=== PATIENT | female | born 1960 | race Caucasian/White ===

== ENCOUNTER 2017-12-22 10:51 | Outpatient (CLI) | payer OTHER | END 2017-12-22 10:52 | disposition home or self-care (01) | LOC: DTY/OP 10:51 | PROVIDERS: ATTEND Surgery | DX: E66.01 Morbid (severe) obesity due to excess calories (principal) | CPT/HCPCS: 97802 ==

== ENCOUNTER 2018-01-03 16:33 | Outpatient (CLI) | payer OTHER ==
[2018-01-03 17:41] LABS: #Basophils 0.1 thou/uL (0.0-0.2); #Eosinphils 0.2 thou/uL (0.0-0.7); #Lymphocytes 1.8 thou/uL (1.20-3.40); #Monocytes 0.5 thou/uL (0.11-0.59); #Neutrophils 4.2 thou/uL (1.40-6.50); %Basophils 0.8 % (0.0-1.0); %Eosinophils 2.9 % (0.0-10.0); %Lymphocytes 26.4 % (21.0-51.0); %Monocytes 7.2 % (0.0-10.0); %Neutrophils 62.7 % (42.0-75.0); Hemoglobin 13.2 g/dL (12.0-16.0); Mean Corpuscular HGB CONC 34.4 g/dL (32.0-36.0); Mean Corpuscular Hemoglobin 30.1 pg (27.0-31.0); Mean Corpuscular Volume 87.5 fL (78.0-98.0); Platelet Count 268 thou/uL (130-400); RBC Distribution Width 11.7 % (11.5-14.5); Red Blood Cell (RBC) Count 4.39 mill/uL (4.20-5.40); White Blood Cell (WBC) Count 6.7 thou/uL (4.8-10.8)
[2018-01-03 17:54] LABS: Hemoglobin A1c 5.3 % (4.0-6.0)
[2018-01-03 17:56] LABS: ALT (SGPT) 29 U/L (8-55); AST (SGOT) 21 U/L (5-34); Albumin 4.3 g/dL (3.5-5.0); Alkaline Phosphatase 82 U/L (40-150); Anion Gap 13 mmol/L (10-20); BUN (Urea Nitrogen) 21 mg/dL (9.8-20.1); Bilirubin, Direct 0.1 mg/dL (0.1-0.3); Bilirubin, Total 0.4 mg/dL (0.2-1.2); Calc. Creatinine Clearance 0 mL/min (70-130); Calcium 9.6 mg/dL (7.8-10.44); Carbon Dioxide 24 mmol/L (22-29); Chloride 105 mmol/L (98-107); Estimated GFR-MDRD 78; Glucose 84 mg/dL (70-105); Potassium 4.1 mmol/L (3.5-5.1); Protein, Total 7.3 g/dL (6.0-8.3); Sodium 138 mmol/L (136-145)
--- NOTE | 2018-01-03 18:26 | RAD ---
TWO VIEW CHEST: 01/03/18 COMPARISON: None available. INDICATION: Preoperative assessment. FINDINGS: The cardiac silhouette is at upper limits of normal in size. There is no lobar consolidation, effusio n or discrete pneumothorax. No acute osseous pathology visualized. IMPRESSION: No focal consolidation. POS: FLAKO
== END 2018-01-03 16:34 | disposition home or self-care (01) ==
LOC: LABBT 16:33
PROVIDERS: ATTEND Surgery
DX: Z01.818 Encounter for other preprocedural examination (principal); E66.01 Morbid (severe) obesity due to excess calories
CPT/HCPCS: 71046; 80053; 80076; 83036; 85025

== ENCOUNTER 2018-01-03 17:15 | Inpatient (IN) | payer OTHER ==
[2018-01-06] MEDS ORDERED: CEFAZOLIN/Water 2 GM/20 ML SYRINGE ONE (09:06)
[2018-01-06] MEDS ORDERED: Heparin 5,000 UNITS/ML VIAL ONE (09:07)
[2018-01-06] MEDS ORDERED: Fentanyl 100 MCG/2 ML VIAL ONE (12:18)
[2018-01-06] MEDS ORDERED: Midazolam HCl 2 mg/2 ml Vial ONE (12:18)
[2018-01-06] MEDS ORDERED: HYDROmorphone 2 MG/ML VIAL ONE ×2 (12:18→14:27)
[2018-01-06] MEDS ORDERED: Promethazine HCl 25 MG/ML VIAL IM PRN ×3 (12:22→14:02)
[2018-01-06] MEDS ORDERED: Meperidine HCl/PF 25 MG/ML VIAL SLOW IVP PRN (12:22)
[2018-01-06] MEDS ORDERED: Ondansetron HCl/PF 4 MG/2 ML Vial IVP PRN ×3 (12:22→14:02)
[2018-01-06] MEDS ORDERED: HYDROmorphone 10 mg/100 ml CADD IVPB PRN (12:22)
[2018-01-06] MEDS ORDERED: diphenhydrAMINE 50 MG/ML VIAL IM PRN (12:22)
[2018-01-06] MEDS ORDERED: Zolpidem Tartrate 5 MG TAB PO PRN (12:22)
[2018-01-06] MEDS ORDERED: Naloxone HCl 0.4 mg/ml Vial IV PRN (12:22)
[2018-01-06] MEDS ORDERED: diphenhydrAMINE 25 MG CAP PO PRN (12:22)
[2018-01-06] MEDS ORDERED: Promethazine HCl 25 MG/ML VIAL SLOW IVP PRN (12:22)
[2018-01-06] MEDS ORDERED: HYDROmorphone 2 MG/ML VIAL SLOW IVP PRN (12:22)
[2018-01-06] MEDS ORDERED: diphenhydrAMINE 50 MG/ML VIAL IVP PRN ×2 (12:22→14:02)
[2018-01-06] MEDS ORDERED: Communication Order-Pharmacy FS SCH (12:30)
[2018-01-06] MEDS ORDERED: Bupivacaine/Epinephrine 0.25% 30 ML VIAL ONE (12:32)
[2018-01-06] MEDS ORDERED: Morphine 4 MG/ML VIAL SLOW IVP PRN (14:02)
[2018-01-06] MEDS ORDERED: hydrALAZINE 20 MG/ML VIAL SLOW IVP PRN (14:02)
[2018-01-06] MEDS ORDERED: Dextrose 50% Abboject 50 ML SYRINGE SLOW IVP PRN (14:02)
[2018-01-06] MEDS ORDERED: Dextrose 5% in Water 1,000 ML IV PRN (14:02)
--- NOTE | 2018-01-06 14:13 | OP ---
DATE OF PROCEDURE: 01/06/2018 PREOPERATIVE DIAGNOSIS: Morbid obesity. SURGEON: Hany Ford M.D. PROCEDURE: Laparoscopic sleeve gastrectomy with esophagogastroscopy. INDICATIONS: This is a 57-year-old female, morbidly obese, who has attempted multiple weight loss p rograms without success. FINDINGS: A 38 [place] bougie used. PROCEDURE IN DETAIL: After informed consent was obtained, the patient was taken to the operating kyung m and given general endotracheal anesthesia. She was placed in the supine position. Her abdomen was prepped and draped in usual fashion. Local anesthesia infiltrated subcutaneously and deep. A 12 mm incision was performed approximately 8 inches above the xiphoid slightly to the left. Veress needle inserted. Drop test performed. Pneumoperitoneum was created to a volume of 2 liters of carbon diox cherri. Utilizing a bladeless 12 mm trocar and 0 degree laparoscope, direct visual entry into the abdom inal cavity was performed. Pneumoperitoneum was then created to a pressure of 15 mmHg. The patient placed in steep reverse Trendelenburg position. Nathansen liver retractor inserted. Left lobe of li lincoln retracted superiorly. Pylorus identified a 12 mm port placed on the right beneath it and two 12s placed left subcostal. The omentum was taken off the greater curvature utilizing EnSeal. Short gas trics divided with the Enseal, left crura defined with the EnSeal. A 38-[place] bougie inserted direc keith into the antrum. The linear 60 mm green load stapler used to divide the antrum to the bougie, go ld load along the bougie, and a series of blues through the angle of His. Intraoperative endoscopy w as performed. The video endoscope inserted under direct vision and advanced into the sleeve. The st aple line inspected. There was no bleeding. Staple line then tested by inflating the new stomach wi th pressurized air and water. There was no air leak. Stomach decompressed. Scope removed. The rem nant stomach removed from the abdomen through the left lateral port site. The fascia closed with 0 V icryl suture and the GraNee needle. Trocars and retractors removed. The skin closed with interrupte d 4-0 Rapide. Dermabond applied. The patient tolerated the procedure well and was transferred to [facility] in good condition. Sponge and needle count verified correct x2.
[2018-01-06] MEDS ORDERED: PROPOFOL 200 MG/20 ML VIAL ONE (14:44)
[2018-01-06] MEDS ORDERED: Ketorolac Tromethamine 30 MG/ML VIAL ONE (14:44)
[2018-01-06] MEDS ORDERED: Dexamethasone 20 MG/5 ML VIAL ONE (14:44)
[2018-01-06] MEDS ORDERED: PHENYLEPHRINE-NS 100 MCG/ML 10 ML SYRINGE ONE (14:44)
[2018-01-06] MEDS ORDERED: Glycopyrrolate 0.2 MG/ML 5 ML SYRINGE ONE (14:44)
[2018-01-06] MEDS ORDERED: Ondansetron HCl/PF 4 MG/2 ML Vial ONE (14:44)
[2018-01-06] MEDS ORDERED: Lidocaine 1% PF 5 ML VIAL ONE (14:44)
[2018-01-06 15:47] VITALS: BMI 34.9
[2018-01-06] MEDS: D5 1/2 NS w/20 mEq KCL 1,000 ML IV SCH (17:46)
[2018-01-06] MEDS: Acetaminophen 1,000 MG in Premix Bag 1 BAG IVPB SCH ×2 (17:47→23:18)
[2018-01-06] MEDS: Ketorolac Tromethamine 30 MG/ML VIAL IVP SCH ×2 (17:47→23:19)
[2018-01-06] MEDS: CEFAZOLIN/Water 2 GM/20 ML SYRINGE SLOW IVP SCH (17:50)
[2018-01-07] MEDS: CEFAZOLIN/Water 2 GM/20 ML SYRINGE SLOW IVP SCH (01:06)
[2018-01-07] MEDS: D5 1/2 NS w/20 mEq KCL 1,000 ML IV SCH ×2 (03:17→08:06)
[2018-01-07 05:35] LABS: #Lymphocytes 0.7 thou/uL (1.20-3.40); #Monocytes 0.7 thou/uL (0.11-0.59); #Neutrophils 9.4 thou/uL (1.40-6.50); %Basophils 0.4 % (0.0-1.0); %Eosinophils 0.2 % (0.0-10.0); %Lymphocytes 6.6 % (21.0-51.0); %Monocytes 6.1 % (0.0-10.0); %Neutrophils 86.7 % (42.0-75.0); Hemoglobin 10.9 g/dL (12.0-16.0); Mean Corpuscular HGB CONC 34.1 g/dL (32.0-36.0); Mean Platelet Volume 8.2 fL (7.4-10.4); Platelet Count 260 thou/uL (130-400); RBC Distribution Width 11.6 % (11.5-14.5); Red Blood Cell (RBC) Count 3.65 mill/uL (4.20-5.40); White Blood Cell (WBC) Count 10.9 thou/uL (4.8-10.8)
[2018-01-07 05:44] LABS: Anion Gap 11 mmol/L (10-20); BUN (Urea Nitrogen) 13 mg/dL (9.8-20.1); Calc. Creatinine Clearance 127 mL/min (70-130); Calcium 8.4 mg/dL (7.8-10.44); Carbon Dioxide 25 mmol/L (22-29); Chloride 103 mmol/L (98-107); Estimated GFR-MDRD 78; Glucose 156 mg/dL (70-105); Potassium 4.5 mmol/L (3.5-5.1); Sodium 134 mmol/L (136-145)
[2018-01-07] MEDS: Acetaminophen 1,000 MG in Premix Bag 1 BAG IVPB SCH (06:26)
[2018-01-07] MEDS: Ketorolac Tromethamine 30 MG/ML VIAL IVP SCH (06:27)
[2018-01-07 08:50] VITALS: BP 123/86; TEMP 98
--- NOTE | 2018-01-07 08:55 | RAD ---
LIMITED UPPER GI WITH 15 ML GASTROGRAFIN: HISTORY: Recent vertical sleeve gastrectomy. FINDINGS: There is prompt passage of contrast from the esophagus into the stomach. No contrast extravasation i s seen. IMPRESSION: Normal exam. POS: TIM
[2018-01-07] MEDS ORDERED: Prevnar 13-Val Conj/PF 0.5 ML SYRINGE IM ONE (09:00)
[2018-01-07] MEDS ORDERED: Pantoprazole 40 MG VIAL IVP SCH (09:00)
[2018-01-07] MEDS ORDERED: Enoxaparin Sodium 40 MG/0.4 ML SYRINGE SC SCH (09:00)
--- NOTE | 2018-01-07 11:35 | DIS ---
DISCHARGE DIAGNOSIS: Morbid obesity. PROCEDURES DURING ADMISSION: Laparoscopic sleeve gastrectomy, intraoperative esophagogastroscopy, po stoperative Gastrografin swallow. HOSPITAL COURSE: The patient was admitted, taken to the operating room where she underwent a sleeve gastrectomy. Postoperatively, she has done well. X-ray was fine. She was started on liquid. She i s tolerating well. She is discharged home on hydrocodone and Zofran to follow up with me in 2 weeks.
[2018-01-07] MEDS ORDERED: Hydrocodone-Acetamin 15 ML UDCUP PO PRN (23:59)
== END 2018-01-07 12:36 | disposition home or self-care (01) | DRG 621 ==
LOC: SURG A 01-06 08:30
PROVIDERS: ADMIT Surgery; ATTEND Surgery
PROC: 0DB64Z3 Excision of Stomach, Percutaneous Endoscopic Approach, Vertical (ICD-10-PCS; principal; 2018-01-06)
DX: E66.01 Morbid (severe) obesity due to excess calories (principal); Z68.35 Body mass index [BMI] 35.0-35.9, adult
CPT/HCPCS: 36415; 74241; 80048; 85025; 88307; 88312; C9113; J0131; J1100; J1170; J1644; J1650; J1885; J2001; J2250; J2405; J2704; J3010

== ENCOUNTER 2018-01-26 11:16 | Outpatient (CLI) | payer OTHER | END 2018-01-26 11:17 | disposition home or self-care (01) | LOC: BICMAMMO 11:16 | PROVIDERS: ATTEND Obstetrics & Gynecology | DX: Z12.31 Encounter for screening mammogram for malignant neoplasm of breast (principal); Z80.3 Family history of malignant neoplasm of breast | CPT/HCPCS: 77063; 77067 ==

== ENCOUNTER 2018-03-28 08:37 | Day surgery (SDC) | payer OTHER ==
[2018-03-25 17:26] VITALS: BMI 30.5
[2018-03-28] MEDS ORDERED: PROPOFOL 20 ML ONE (09:05)
[2018-03-28] MEDS ORDERED: PROPOFOL 200 MG/20 ML VIAL ONE (14:59)
--- NOTE | 2018-03-28 16:52 | EKG ---
Test Reason : POST CARDIOVERSION Blood Pressure : / mmHG Vent. Rate : 051 BPM Atrial Rate : 051 BPM P-R Int : 152 ms QRS Dur : 080 ms QT Int : 472 ms P-R-T Axes : -03 056 030 degrees QTc Int : 435 ms Sinus bradycardia Otherwise normal ECG No previous ECGs available Confirmed by DR. Rosalba MAYEN ([id number]) on 03/28/2018 4:51:46 PM Referred By: CASSI Confirmed By:DR. Rosalba MAYEN
--- NOTE | 2018-05-13 14:41 | OP ---
DATE OF PROCEDURE: 03/28/2018 PREPROCEDURE DIAGNOSIS: Atrial fibrillation. POSTPROCEDURE DIAGNOSIS: Sinus rhythm. PROCEDURE: Successful synchronized cardioversion. NARRATIVE: The patient was then consented for the procedure. Propofol was used for conscious sedation. The patient underwent successful synchronized cardioversion at 150 joules. IMPRESSION: Successful synchronized cardioversion. Job ID: [id number]
== END 2018-03-28 11:08 | disposition home or self-care (01) ==
LOC: CCL 08:37
PROVIDERS: ATTEND Internal Medicine Cardiovascular Disease
PROC: 5A2204Z Restoration of Cardiac Rhythm, Single (ICD-10-PCS; principal; 2018-03-28)
DX: I48.1 Persistent atrial fibrillation (principal); Z79.01 Long term (current) use of anticoagulants; Z79.899 Other long term (current) drug therapy
CPT/HCPCS: 92960; 93005; 93010; J2704

== ENCOUNTER 2018-10-12 07:12 | Observation (INO) | payer OTHER, SELFPAY ==
[2018-10-12 08:34] LABS: #Basophils 0.1 thou/uL (0.0-0.2); #Eosinphils 0.2 thou/uL (0.0-0.7); #Lymphocytes 1.4 thou/uL (1.20-3.40); #Monocytes 0.4 thou/uL (0.11-0.59); #Neutrophils 2.8 thou/uL (1.40-6.50); %Basophils 1.8 % (0.0-1.0); %Eosinophils 3.7 % (0.0-10.0); %Monocytes 8.5 % (0.0-10.0); Hemoglobin 13.9 g/dL (12.0-16.0); Mean Corpuscular HGB CONC 33.7 g/dL (32.0-36.0); Mean Corpuscular Hemoglobin 30.9 pg (27.0-31.0); Mean Corpuscular Volume 91.9 fL (78.0-98.0); Mean Platelet Volume 7.9 fL (7.4-10.4); Platelet Count 263 thou/uL (130-400); RBC Distribution Width 11.3 % (11.5-14.5); Red Blood Cell (RBC) Count 4.51 mill/uL (4.20-5.40); White Blood Cell (WBC) Count 4.9 thou/uL (4.8-10.8)
[2018-10-12 08:39] LABS: PTT 28.2 SEC (22.9-36.1); Prothrombin Time 13.3 SEC (12.0-14.7)
[2018-10-12 08:53] LABS: Anion Gap 11 mmol/L (10-20); BUN (Urea Nitrogen) 9 mg/dL (9.8-20.1); Calc. Creatinine Clearance 107 mL/min (70-130); Calcium 9.4 mg/dL (7.8-10.44); Carbon Dioxide 26 mmol/L (22-29); Chloride 105 mmol/L (98-107); Estimated GFR-MDRD 82; Glucose 92 mg/dL (70-105); Potassium 3.9 mmol/L (3.5-5.1); Sodium 138 mmol/L (136-145)
[2018-10-12] MEDS ORDERED: Heparin 10,000 UNITS/1 ML VIAL ONE ×4 (10:55→13:58)
[2018-10-12] MEDS ORDERED: Scopolamine 1.5 mg/72 hour Patch ONE (10:56)
[2018-10-12] MEDS ORDERED: Fentanyl 100 MCG/2 ML VIAL ONE (11:11)
[2018-10-12] MEDS ORDERED: Phenylephrine HCL 10 MG/ML VIAL ONE (11:31)
[2018-10-12] MEDS ORDERED: Heparin 25,000 units/D5W 500 ML ONE (12:50)
[2018-10-12] MEDS ORDERED: Rocuronium Bromide 50 MG/5 ML VIAL ONE (13:50)
[2018-10-12] MEDS ORDERED: Isoproterenol 0.2 MG/1 ML AMP ONE (13:59)
[2018-10-12] MEDS ORDERED: Protamine Sulfate 50 MG/5 ML VIAL ONE (14:43)
[2018-10-12] MEDS ORDERED: Glycopyrrolate 0.2 MG/ML 5 ML SYRINGE ONE (15:10)
[2018-10-12] MEDS ORDERED: PROPOFOL 200 MG/20 ML VIAL ONE (15:10)
[2018-10-12] MEDS ORDERED: Heparin 30,000 units/30 ml VIAL ONE (15:10)
[2018-10-12] MEDS ORDERED: Rocuronium Bromide 10 MG/ML (10ML VIAL) ONE (15:10)
[2018-10-12] MEDS ORDERED: Lidocaine 1% PF 5 ML VIAL ONE (15:10)
[2018-10-12] MEDS ORDERED: Dexamethasone 20 MG/5 ML VIAL ONE (15:10)
[2018-10-12] MEDS ORDERED: Ondansetron PF 4 MG/2 ML Vial ONE (15:10)
[2018-10-12] MEDS ORDERED: Rivaroxaban 10 MG TAB PO SCH ×2 (17:00→21:00)
[2018-10-12 17:27] VITALS: BMI 27.3
--- NOTE | 2018-10-12 20:42 | OP ---
DATE OF PROCEDURE: 10/12/2018 PRIMARY CARE PHYSICIAN: Josué Mireles MD PROCEDURE PERFORMED: Electrophysiology study and radiofrequency ablation. REASON FOR PROCEDURE: Mrs. Galindo is a 58-year-old woman with history of recurrent persistent atrial fibrillation, prior cardioversions and recurrent despite flecainide. She is here for pulmonary venous isolation procedure. She has otherwise structurally normal heart. LVEF 51%. The patient has been well anticoagulated with Xarelto over a month. DESCRIPTION OF PROCEDURE: The patient received propofol by Anesthesia specialist. After adequate level of sedation achieved, the left and right femoral venous areas were prepped, draped, and anesthetized using subcutaneous lidocaine. In the left side, an 11-Spanish sheath was used to advance the intracardiac echocardiogram probe, which was used to monitor the transeptal puncture to assess any fluid accumulation throughout the procedure. Also on the left side, a Preface sheath was introduced, through which DuoDeca sheath was exchanged there to Decapolar sheath to cannulate the CS. Following that on the right side, two 8-Spanish short sheaths were introduced. The 8-Spanish short sheaths were exchanged to SL1 sheath. Initial right atrial map was obtained using ThermoCool SFST catheter. The second SL1 sheath was also introduced, and a transseptal puncture was performed with this sheath. Heparin was introduced at this point in bolus and drip and that was adjusted to keep ACT over 350 throughout the procedure. The transseptal sheath was used to insert a wire into the left superior pulmonary vein, and the sheath was withdrawn and through this transseptal opening. The ablation catheter was advanced to the left atrium, and later, the second SL1 sheath was also inserted through the same opening. Following that, left atrial map was obtained using the 20-pole Lasso catheter. All 4 pulmonary veins were isolated as well as posterior wall was also isolated using superior and inferior box line. At this point, cardioversion was performed, restoring sinus rhythm, and Isuprel was introduced. Any reconnection was re-ablated. Throughout the procedure, an esophageal temperature monitored with the esophageal probe to avoid excessive heating. A total of 29 ablation lesions delivered, and the total ablation time was 15 minutes and 55 seconds at 40 reilly. On Isuprel, any reconnection re-ablated, the sheaths were pulled to the right side, and the protamine was used to reverse the heparin effects. The sheaths were removed in clinical lab assistant, and Vascade closure was performed. The patient tolerated the procedure well. Throughout the procedure, no evidence of pericardial effusion was seen with intracardiac echo and cinegraphy. Also, EP study was performed during the case. At baseline, R interval was 808 milliseconds during atrial fibrillation, QRS 54 milliseconds, QT 406, HV 46 milliseconds. AV Wenckebach cycle length in sinus rhythm was 440 milliseconds with left ventricular pacing, no VA conduction was seen. AV danae ERP was measured to 500/220 milliseconds. Dual AV danae physiology was observed. No additional arrhythmias were noted. CONCLUSION: 1. Successful 4-vein pulmonary venous isolation and posterior wall isolation achieved. 2. Normal AV danae and His-Purkinje system function. 3. Dual AV danae physiology without evidence of AVNRT. Job ID: [id number]
[2018-10-12] MEDS: Calcium Carbonate + Vit D 1 TAB PO SCH (21:15)
[2018-10-13 08:25] VITALS: BP 129/76; TEMP 97.8
[2018-10-13] MEDS ORDERED: Multivit, Therapeutic 1 TAB PO SCH (09:00)
[2018-10-13] MEDS: Calcium Carbonate + Vit D 1 TAB PO SCH (09:08)
--- NOTE | 2018-10-14 11:00 | DIS ---
DATE OF ADMISSION: 10/12/2018 DATE OF DISCHARGE: 10/13/2018 DIAGNOSIS: Atrial fibrillation. PROCEDURES PERFORMED: Electrophysiology study, three dimensional mapping and ablation. HISTORY OF PRESENT ILLNESS: Ms. Galindo is a 58-year-old woman with a history of recurrent persistent atrial fibrillation, refractory to prior cardioversions on flecainide. She was admitted on the for an elective outpatient electrophysiology study and pulmonary venous isolation procedure. She has a structurally normal heart with an ejection fraction of 51%. She had been well anticoagulated on Xarelto for over a month. She underwent successful 4-vein pulmonary venous isolation and posterior wall isolation. She was found to have normal AV danae and His-Purkinje system function. She had dual AV danae physiology without evidence of AVNRT. She received a total ablation time of 15 minutes and 55 seconds. SUBJECTIVE: Ms. Galindo is feeling well this morning. She denies any heart racing, palpitations, chest pain or pressure, syncope or near syncope, stroke or stroke-like symptoms, shortness of breath, nausea, vomiting, diarrhea, blood in her stool, blood in her urine, bleeding at the groin sites, or difficulty swallowing. She has been up ambulating throughout the kim and feels ready to discharge home. REVIEW OF SYSTEMS: An 8-point review of systems is negative except as above in HPI. OBJECTIVE: VITAL SIGNS: Temperature 97.8, pulse 51, blood pressure 129/76, respirations 16, and oxygen is 98% on room air. GENERAL: The patient is alert and oriented. Speech is clear. Affect is appropriate. NEUROLOGIC: Grossly intact and nonfocal. NECK: Supple without jugular venous distention. LUNGS: Clear to auscultation. HEART: Rate is regularly regular with a crisp S1 and S2. PMI is nondisplaced. No significant murmur, rub, or gallop. ABDOMEN: Soft and nontender without palpable masses. Hepatojugular reflux is negative. EXTREMITIES: Warm and dry to touch without clubbing, cyanosis, or edema. Gait is stable. LABORATORY AND DIAGNOSTIC STUDIES: Database EKGs and telemetry reflect ongoing sinus rhythm without any recurrent atrial arrhythmias and no significant ectopy. DISCHARGE MEDICATIONS: Include resuming home medications of, 1. Multivitamin daily. 2. Calcium with vitamin D b.i.d. 3. Xarelto 20 mg p.o. daily. 4. Metoprolol succinate 12.5 mg p.o. daily, but to hold for heart rate less than 60. New prescriptions provided include: 1. Carafate 1 g p.o. before meals and at bedtime x2 weeks. 2. Protonix 40 mg daily x30 days. 3. Furosemide 40 mg p.o. p.r.n. daily for shortness of breath or weight gain. 4. Potassium chloride 20 mEq p.o. p.r.n. to be taken with Lasix as needed. CONDITION AT DISCHARGE: Stable. DISCHARGE INSTRUCTIONS: Follow up with [facility] in 6 weeks. No soaking baths or lifting more than 10 pounds for 1 week. Contact [facility] with any postablation concerns or questions. Resume oral anticoagulation without any interruption. Job ID: [id number]
--- NOTE | 2018-10-15 13:29 | EKG ---
Test Reason : PREOP Blood Pressure : / mmHG Vent. Rate : 066 BPM Atrial Rate : 441 BPM P-R Int : 000 ms QRS Dur : 080 ms QT Int : 408 ms P-R-T Axes : 000 042 014 degrees QTc Int : 427 ms Atrial fibrillation Abnormal ECG When compared with ECG of 28-MAR-2018 10:15, Atrial fibrillation has replaced Sinus rhythm Confirmed by DR. Luis A SHERWOOD ([id number]) on 10/15/2018 1:29:05 PM Referred By: [facility] Confirmed By:DR. Luis A SHERWOOD
--- NOTE | 2018-10-15 13:32 | EKG ---
Test Reason : Blood Pressure : / mmHG Vent. Rate : 065 BPM Atrial Rate : 065 BPM P-R Int : 146 ms QRS Dur : 082 ms QT Int : 472 ms P-R-T Axes : 059 047 031 degrees QTc Int : 490 ms Normal sinus rhythm Prolonged QT Abnormal ECG When compared with ECG of 12-OCT-2018 07:54, (Unconfirmed) Sinus rhythm has replaced Atrial fibrillation QT has lengthened Confirmed by DR. Luis A SHERWOOD ([id number]) on 10/15/2018 1:32:00 PM Referred By: [facility] Confirmed By:DR. Luis A SHERWOOD
--- NOTE | 2018-10-15 13:44 | EKG ---
Test Reason : Blood Pressure : / mmHG Vent. Rate : 048 BPM Atrial Rate : 048 BPM P-R Int : 138 ms QRS Dur : 082 ms QT Int : 468 ms P-R-T Axes : 035 043 027 degrees QTc Int : 418 ms Marked sinus bradycardia Abnormal ECG When compared with ECG of 12-OCT-2018 15:29, (Unconfirmed) Nonspecific T wave abnormality no longer evident in Anterior leads QT has shortened Confirmed by DR. Luis A SHERWOOD ([id number]) on 10/15/2018 1:44:17 PM Referred By: [facility] Confirmed By:DR. Luis A SHERWOOD
== END 2018-10-13 09:58 | disposition home or self-care (01) ==
LOC: CCL 07:12 → 2SW 17:21
PROVIDERS: ADMIT Internal Medicine Cardiovascular Disease; ATTEND Internal Medicine Cardiovascular Disease
PROC: 02583ZZ Destruction of Conduction Mechanism, Percutaneous Approach (ICD-10-PCS; principal; 2018-10-13)
PROC: 02K83ZZ Map Conduction Mechanism, Percutaneous Approach (ICD-10-PCS; 2018-10-13)
PROC: 4A023FZ Measurement of Cardiac Rhythm, Percutaneous Approach (ICD-10-PCS; 2018-10-13)
PROC: 4A0234Z Measurement of Cardiac Electrical Activity, Percutaneous Approach (ICD-10-PCS; 2018-10-13)
DX: I48.1 Persistent atrial fibrillation (principal); G47.33 Obstructive sleep apnea (adult) (pediatric); Z79.01 Long term (current) use of anticoagulants; Z79.899 Other long term (current) drug therapy; Z98.84 Bariatric surgery status; Z98.890 Other specified postprocedural states
CPT/HCPCS: 36415; 76942; 80048; 85025; 85347; 85610; 85730; 92960; 93005; 93010; 93613; 93622; 93623; 93656; 93662; C1731; C1732; C1759; C1769; G0378; J1100; J1644; J2001; J2370; J2405; J2704; J2720; J3010

== ENCOUNTER 2020-03-27 06:58 | Outpatient (CLI) | payer OTHER ==
[2020-03-27 15:14] LABS: Hemoglobin 14.1 g/dL (12.0-16.0); Mean Corpuscular HGB CONC 32.4 G/DL (32.0-36.0); Mean Corpuscular Volume 92.6 fl (80.0-100.0); Platelet Count 237 10x3/uL (130-400); RBC Distribution Width 12.4 % (11.5-14.5); White Blood Cell (WBC) Count 4.4 10x3/uL (4.5-11.0)
[2020-03-27 15:24] LABS: Anion Gap 15 mmol/L (10-20); BUN (Urea Nitrogen) 15 mg/dL (9.8-20.1); Calc. Creatinine Clearance 0 mL/min (70-130); Calcium 9.3 mg/dL (7.8-10.44); Carbon Dioxide 28 mmol/L (22-29); Chloride 99 mmol/L (98-107); Estimated GFR-MDRD 71; Glucose 97 mg/dL (70-105); Potassium 4.2 mmol/L (3.5-5.1); Sodium 138 mmol/L (136-145)
[2020-03-27 15:34] LABS: PTT 25.9 sec (22.0-33.0); Prothrombin Time 10.8 sec (9.5-12.1)
[2020-03-28 14:44] LABS: SARS-CoV-2 MS2 Positive; SARS-CoV-2 N Gene Negative; SARS-CoV-2 S Gene Negative; SARS-CoV-2 by NAA Not Detected (NotDetected); SARS-CoV-2 orf1ab Negative
== END 2020-03-27 06:59 | disposition home or self-care (01) ==
LOC: LABBT 06:58
PROVIDERS: ATTEND Internal Medicine Cardiovascular Disease
DX: Z01.818 Encounter for other preprocedural examination (principal); Z20.828 Contact with and (suspected) exposure to other viral communicable diseases; I48.91 Unspecified atrial fibrillation
CPT/HCPCS: 80048; 85027; 85610; 85730; 87635; 93005; 93010; U0003

== ENCOUNTER 2020-04-01 06:02 | Observation (INO) | payer OTHER ==
[2020-04-01] MEDS ORDERED: Heparin 10,000 UNITS/ 10 ML VIAL ONE ×3 (06:49→12:38)
[2020-04-01] MEDS ORDERED: Midazolam HCl 2 mg/2 ml Vial ONE (07:19)
[2020-04-01] MEDS ORDERED: Heparin 25,000 units/D5W 500 ML ONE (08:32)
[2020-04-01] MEDS ORDERED: Isoproterenol 0.2 MG/1 ML AMP ONE (10:19)
[2020-04-01] MEDS ORDERED: Dexamethasone 20 MG/5 ML VIAL ONE (11:40)
[2020-04-01] MEDS ORDERED: Metoclopramide HCl 10 MG/2 ML VIAL ONE (11:40)
[2020-04-01] MEDS ORDERED: Rocuronium Bromide 10 MG/ML (10ML VIAL) ONE (11:40)
[2020-04-01] MEDS ORDERED: Succinylcholine 200 MG/10 ml SYRINGE FS ONE (11:40)
[2020-04-01] MEDS ORDERED: PHENYLEPHRINE-NS 100 MCG/ML 10 ML SYRINGE ONE (11:40)
[2020-04-01] MEDS ORDERED: PROPOFOL 200 MG/20 ML VIAL ONE (11:40)
[2020-04-01] MEDS ORDERED: Glycopyrrolate 0.2 MG/ML 5 ML SYRINGE ONE (11:40)
[2020-04-01] MEDS ORDERED: Ondansetron PF 4 MG/2 ML Vial ONE (11:40)
[2020-04-01] MEDS ORDERED: Lidocaine 1% PF 5 ML VIAL ONE (11:40)
[2020-04-01] MEDS ORDERED: Protamine Sulfate 50 MG/5 ML VIAL ONE (12:38)
[2020-04-01] MEDS ORDERED: Ketorolac Tromethamine 30 MG/ML VIAL IVP PRN (13:29)
[2020-04-01 17:03] VITALS: BMI 26.4
[2020-04-01] MEDS ORDERED: Rivaroxaban 10 MG TAB PO SCH (18:00)
[2020-04-01] MEDS: Sucralfate 1 GM TAB PO SCH ×2 (18:36→21:20)
--- NOTE | 2020-04-01 18:47 | OP ---
DATE OF PROCEDURE: 04/01/2020 REASON FOR PROCEDURE: Ms. Galindo is a 59-year-old woman with history of recurrent atrial arrhythmias. She had a persistent atrial fibrillation requiring and failing antiarrhythmics. She underwent a pulmonary venous isolation procedure on October 12, 2018. She had late recurrence of atrial flutter. Requiring flecainide for suppression. She is here for radiofrequency ablation procedure. DESCRIPTION OF PROCEDURE: The patient received general anesthesia by Anesthesia specialist. The left and right femoral venous area were prepped, draped, and anesthetized using subcutaneous lidocaine. After adequate level of sedation achieved on the left side, an 8-[place] Citizen and an 11-[place] Citizen sheaths were used to advance a DecaNav catheter to the right atrium, which was used to obtain a 3D map of the right atrium delineating His bundle and CS positions. Also, intracardiac echocardiogram probe was advanced through an 11-[place] Citizen sheath into the right atrium where it was used to monitor the transseptal puncture. The catheter manipulation assessed at the pericardial space throughout the procedure. Through the right femoral veins, two SL1 sheaths were used to perform a transseptal puncture with the help of a powered [place] needle. Prior to the transseptal procedure, IV heparin was administered in a bolus and drip fashion to keep ACT over 350. Through the SL1 sheath, a PentaRay mapping catheter and a ThermoCool SFST catheter were advanced to the left atrium, where it was used to obtain 3D map of the left atrium. Just as before, 4 separate pulmonary veins were noted. At baseline, reconnection in the right superior and right inferior pulmonary veins were seen. These areas were re-isolated. Also, the patient remained in atrial fibrillation at this point. Additional lesions were placed seeking out fractionated potentials in the inferobasal wall of the left atrium over the CS roof. Also lesions were placed in the inferoseptal area as well as the anteroseptal area and the anterior portion of the left atrium. During an ablation adjacent to the left atrial appendage, the atrial fibrillation terminated and sinus rhythm ensued. At this point, Isuprel was administered. The ablation catheter was advanced to the left ventricle and LV pacing was performed. Also, pacing maneuver from the CS, pacing left atrium was also performed. The retrograde Wenckebach cycle length was 400 msec anterograde AV danae ERP was 400/180 msec. The sinus cycle length was 600 msec. HI 151, QRS 61, QT 339 msec, HV measured at 37 msec. Burst atrial pacing maneuvers were performed and were able to induce 4 different morphology atrial flutters. 1st atrial flutter, with CS activation suggestive of typical right atrial flutter was induced with cycle length of 260 msec. The ablation catheter re-withdrawn to the right atrium and the cavotricuspid isthmus ablation was performed. This did not eliminate the arrhythmia. Further mapping mapped with earliest activation to the right atrial septum where ablation in this area terminated the atrial flutter. 2. Additional left atrial flutter was inducible with cycle length of 300 msec. Ablation performed at the base of the left atrial appendage which terminated this left atrial flutter. 3. A different morphology atrial flutter was also induced where earliest activation of the left septal area terminated the arrhythmia. 5. An additional flutter was seen, which was also about 300 msec in cycle length with reversed CS activation than the prior flutters, with activation map was consistent with macroreentrant flutter. Mapping of this atrial flutter revealed fractionated mid diastolic potentials in the anterior roof and also in the right superior posterior area of the posterior wall. Radiofrequency ablation in this area did not terminate the flutter and with further ablation by the mitral annulus were also performed by the left inferior pulmonary vein area. These efforts failed to terminate this atrial flutter. Eventually, this flutter was pace terminated. Catheter would be known from the left atrium and heparin was stopped. Esophageal probe was used throughout the procedure to monitor esophageal temperature especially by the posterior wall ablation where any temperature rise was met with high-flow irrigation from the ablation catheter. At the end of the case, the patient remained in sinus rhythm. The catheters were removed. Intracardiac echo probe proved no change in the pericardial space, and the fluoroscopy revealed no change in the cardiac silhouette. Total of 130 lesions with duration of 39 minute delivered at 40 Turcios, CONCLUSION: 1. Atrial fibrillation baseline. 2. Re-isolation of the right superior and inferior pulmonary veins performed. The left superior and inferior pulmonary veins were remained isolated from a prior procedure. The posterior wall also remained isolated. 3. Additional ablation over the CS roof in the base of left atrium isolating the inferior wall achieved. Also additional ablation at the left interatrial septum anterrior roof and base of the left atrial appendage performed - terminating the atrial fibrillation. 4. Multiple atrial flutters were induced and ablated - as above. PLAN: Continue anticoagulation. Monitor for recurrent arrhythmias or flecainide on recurrent atrial arrhythmias seen. Job ID: [id number] [facility]
[2020-04-01] MEDS: Calcium Carbonate 600 MG + Vit D TAB PO SCH (21:20)
[2020-04-02] MEDS: Sucralfate 1 GM TAB PO SCH (08:00)
[2020-04-02] MEDS ORDERED: Potassium Chloride 20 MEQ TAB PO SCH (08:00)
[2020-04-02] MEDS: Calcium Carbonate 600 MG + Vit D TAB PO SCH (08:00)
[2020-04-02 08:05] VITALS: BP 126/87; TEMP 98.7
[2020-04-02] MEDS ORDERED: Multivit, Therapeutic 1 TAB PO SCH (09:00)
[2020-04-02] MEDS ORDERED: Furosemide 40 MG TAB PO SCH (09:00)
--- NOTE | 2020-04-03 14:44 | DIS ---
DATE OF ADMISSION: 04/01/2020 DATE OF DISCHARGE: 04/02/2020 DIAGNOSIS: Persistent atrial fibrillation. PROCEDURES PERFORMED: Include electrophysiology study with radiofrequency ablation, re-isolation of the right superior and inferior pulmonary veins, left superior and inferior pulmonary veins remained electrically silent from prior ablation. Posterior wall was remained isolated, atrial flutters were mapped and ablated. Total ablation time 39 minutes. SUBJECTIVE: Ms. Galindo is a 59-year-old woman with a history of recurrent atrial arrhythmias, failing antiarrhythmic and previously having undergone PVAI on 10/12/2018. Given her late recurrent arrhythmias, repeat ablation was recommended, which was performed as detailed above yesterday. She has done well. Post ablation with no complications or recurrent arrhythmia issues overnight. She is eager for discharge home. She is eating and drinking and voiding and ambulating normally with no difficulty. OBJECTIVE: VITAL SIGNS: Remained stable. The telemetry shows sinus rhythm with no recurrent atrial fibrillation. She is afebrile. LUNGS: The physical exam is normal with no crackles. HEART: Irregular heart tones. ABDOMEN: Bilateral groin sites are stable with no evidence of bleeding complications. NEUROLOGIC: Exam is grossly intact and nonfocal. DISCHARGE INSTRUCTIONS: 1. Follow up in 6 weeks or sooner if symptoms dictate. 2. Take medications as prescribed. 3. Contact [facility] with any postablation concerns. DISCHARGE MEDICATIONS: 1. Xarelto 20 mg daily. 2. Multivitamin daily. 3. Toprol-XL 12.5 mg daily. 4. Vitamin D one tablet b.i.d. New Prescriptions Provided: 1. Carafate 1 g p.o. before meals and at bedtime x2 weeks. 2. Silvadene cream applied to the skin burn irritation area b.i.d. p.r.n. 3. K-Dur 20 mEq p.o. p.r.n. to be taken with Lasix. 4. Lasix 40 mg p.o. p.r.n. shortness of breath, weight gain, edema, or fluid retention. 5. Protonix 40 mg p.o. daily x30 days. CONDITION AT DISCHARGE: Stable. Job ID: [id number]
--- NOTE | 2020-04-05 08:26 | EKG ---
Test Reason : POST ABLATION Blood Pressure : / mmHG Vent. Rate : 070 BPM Atrial Rate : 070 BPM P-R Int : 160 ms QRS Dur : 080 ms QT Int : 434 ms P-R-T Axes : 064 060 008 degrees QTc Int : 468 ms Sinus rhythm with Premature atrial complexes Otherwise normal ECG Confirmed by CASSI CHURCHILL, SENG ([id number]) on 04/05/2020 8:26:16 AM Referred By: [facility] Confirmed By:SENG YE MD
== END 2020-04-02 11:20 | disposition home or self-care (01) ==
LOC: CCL 06:02 → 2SE 07:10
PROVIDERS: ADMIT Internal Medicine Cardiovascular Disease; ATTEND Internal Medicine Cardiovascular Disease
PROC: 4A023FZ Measurement of Cardiac Rhythm, Percutaneous Approach (ICD-10-PCS; principal; 2020-04-02)
PROC: 4A0234Z Measurement of Cardiac Electrical Activity, Percutaneous Approach (ICD-10-PCS; 2020-04-02)
PROC: 02583ZZ Destruction of Conduction Mechanism, Percutaneous Approach (ICD-10-PCS; 2020-04-02)
PROC: 02K83ZZ Map Conduction Mechanism, Percutaneous Approach (ICD-10-PCS; 2020-04-02)
DX: I48.19 Other persistent atrial fibrillation (principal); G47.33 Obstructive sleep apnea (adult) (pediatric); Z79.01 Long term (current) use of anticoagulants; Z79.899 Other long term (current) drug therapy
CPT/HCPCS: 76942; 85347; 93005; 93010; 93613; 93622; 93623; 93655; 93656; 93657; 93662; C1732; C1759; J1100; J1644; J2250; J2405; J2704; J2720; J2765

== ENCOUNTER 2020-04-05 13:44 | Outpatient (CLI) | payer OTHER ==
[~2020-04-05 13:44] MED LIST: Ketorolac Tromethamine 30 MG/ML VIAL IVP PRN; Ondansetron HCl/PF 4 MG/2 ML Vial IVP PRN
--- NOTE | 2020-04-12 12:18 | MMO ---
Bilateral MAMMO Bilat Screen DDI+HERO. CLINICAL HISTORY: Patient is 59 years old and is seen for screening. The patient has the following family history of breast cancer: maternal aunt. The patient has no personal history of cancer. The patient has a history of bilateral Breast reduction in 2002. VIEWS: The views performed were: bilateral craniocaudal with tomosynthesis and bilateral mediolateral oblique with tomosynthesis. FILMS COMPARED: The present examination has been compared to prior imaging studies performed at [facility] on 12/29/2018, and at [facility] on 01/06/2016, 12/25/2016 and 01/26/2018. This study has been interpreted with the assistance of computer-aided detection. MAMMOGRAM FINDINGS: The breasts are almost entirely fat. There are benign appearing calcifications seen in both breasts. There are no suspicious masses, suspicious calcifications, or new areas of architectural distortion. IMPRESSION: THERE IS NO MAMMOGRAPHIC EVIDENCE OF MALIGNANCY. A ROUTINE FOLLOW-UP MAMMOGRAM IN 1 YEAR IS RECOMMENDED. THE RESULTS OF THIS EXAM WERE SENT TO THE PATIENT. ACR BI-RADS Category 2 - Benign finding MAMMOGRAPHY NOTE: 1. A negative mammogram report should not delay a biopsy if a dominant of clinically suspicious mass is present. 2. Approximately 10% to 15% of breast cancers are not detected by mammography. 3. Adenosis and dense breasts may obscure an underlying neoplasm. Reported by: JAZMIN BAEZA MD Electonically Signed: [id number]
== END 2020-04-05 13:45 | disposition home or self-care (01) ==
LOC: BICMAMMO 13:44
PROVIDERS: ATTEND Family Medicine
DX: Z12.31 Encounter for screening mammogram for malignant neoplasm of breast (principal); Z98.890 Other specified postprocedural states; Z80.3 Family history of malignant neoplasm of breast
CPT/HCPCS: 77063; 77067

== ENCOUNTER 2020-05-15 07:02 | Outpatient (CLI) | payer OTHER ==
[2020-05-15 14:34] LABS: Hemoglobin 13.4 g/dL (12.0-16.0); Mean Corpuscular HGB CONC 32.3 G/DL (32.0-36.0); Mean Corpuscular Hemoglobin 29.8 PG (27.0-33.0); Mean Corpuscular Volume 92.4 fl (80.0-100.0); Mean Platelet Volume 10.3 fl (7.4-10.4); Platelet Count 246 10x3/uL (130-400); RBC Distribution Width 11.9 % (11.5-14.5); Red Blood Cell (RBC) Count 4.49 10x6/uL (3.90-5.20); White Blood Cell (WBC) Count 4.8 10x3/uL (4.5-11.0)
[2020-05-15 14:50] LABS: INR-International Normal Ratio 1.2; PTT 32.2 sec (22.0-33.0); Prothrombin Time 12.7 sec (9.5-12.1)
[2020-05-15 15:09] LABS: Anion Gap 15 mmol/L (10-20); BUN (Urea Nitrogen) 17 mg/dL (9.8-20.1); Calc. Creatinine Clearance 0 mL/min (70-130); Calcium 9.7 mg/dL (7.8-10.44); Carbon Dioxide 28 mmol/L (22-29); Chloride 100 mmol/L (98-107); Glucose 80 mg/dL (70-105); Potassium 4.3 mmol/L (3.5-5.1); Sodium 139 mmol/L (136-145)
[2020-05-16 02:44] LABS: SARS-CoV-2 MS2 Positive; SARS-CoV-2 N Gene Negative; SARS-CoV-2 S Gene Negative; SARS-CoV-2 by NAA Not Detected (NotDetected); SARS-CoV-2 orf1ab Negative
== END 2020-05-15 07:03 | disposition home or self-care (01) ==
LOC: LABBT 07:02
PROVIDERS: ATTEND Internal Medicine Cardiovascular Disease
DX: Z01.812 Encounter for preprocedural laboratory examination (principal); Z20.828 Contact with and (suspected) exposure to other viral communicable diseases; I48.91 Unspecified atrial fibrillation
CPT/HCPCS: 80048; 85027; 85610; 85730; 87635; U0003

== ENCOUNTER 2020-05-30 07:25 | Outpatient (CLI) | payer OTHER ==
[2020-05-31 02:23] LABS: SARS-CoV-2 MS2 Positive; SARS-CoV-2 N Gene Negative; SARS-CoV-2 S Gene Negative; SARS-CoV-2 by NAA Not Detected (NotDetected); SARS-CoV-2 orf1ab Negative
== END 2020-05-30 07:26 | disposition home or self-care (01) ==
LOC: LABBT 07:25
PROVIDERS: ATTEND Internal Medicine Cardiovascular Disease
DX: Z01.812 Encounter for preprocedural laboratory examination (principal); I48.91 Unspecified atrial fibrillation; Z20.822 Contact with and (suspected) exposure to COVID-19
CPT/HCPCS: 87635; U0003

== ENCOUNTER → 2020-06-03 | Day surgery (SDC) | payer OTHER ==
[2020-05-30 13:26] VITALS: BMI 24.3
[~2020-06-03] MED LIST changes: -Ketorolac Tromethamine 30 MG/ML VIAL IVP PRN; -Ondansetron HCl/PF 4 MG/2 ML Vial IVP PRN; +PROPOFOL 200 MG/20 ML VIAL ONE
--- NOTE | 2020-06-03 12:49 | OP ---
DATE OF PROCEDURE: 06/03/2020 PROCEDURE PERFORMED: Electrical cardioversion. REASON FOR PROCEDURE: Ms. Galindo is a 60-year-old woman with prior history of persistent atrial fibrillation status post redo pulmonary venous isolation procedure on 04/01/2020 with additional left atrial flutter ablations performed. She had subsequent recurrence, flecainide started, and she is continued on Xarelto. She is here for cardioversion. DESCRIPTION OF PROCEDURE: The patient received propofol by Anesthesia specialist. After adequate level of sedation achieved, a 50-joule shock promptly converted the patient back to sinus rhythm. CONCLUSION: Successful cardioversion. PLAN: 1. Continue oral anticoagulation and flecainide. 2. Follow up in the office as planned. Job ID: [id number]
--- NOTE | 2020-06-03 12:58 | OP ---
DATE OF PROCEDURE: 06/03/2020 PROCEDURE PERFORMED: Electrical cardioversion. ADDITIONAL REFERRING PHYSICIAN: Josué Mireles MD PRIMARY CARE PHYSICIAN: Josué Mireles MD REASON FOR PROCEDURE: Ms. Galindo is a 60-year-old woman with history of recurrent atrial arrhythmias. She underwent multiple left atrial flutter ablation and redo pulmonary venous isolation procedure in March. Despite she had recurrence, the flecainide was restarted. She has been well anticoagulated with Xarelto. She is here for a 3rd elective cardioversion. DESCRIPTION OF PROCEDURE: The patient received propofol by Anesthesia specialist. After adequate level of sedation achieved, a synchronized 50-joule shock delivered via defibrillator pad, promptly converted the patient back to sinus rhythm. CONCLUSION: Successful cardioversion. PLAN: Continue flecainide and Xarelto. Follow up in the office. Job ID: [id number]
== END ==
LOC: SDC 07:28
PROVIDERS: ATTEND Internal Medicine Cardiovascular Disease
PROC: 5A2204Z Restoration of Cardiac Rhythm, Single (ICD-10-PCS; principal; 2020-06-03)
DX: I48.19 Other persistent atrial fibrillation (principal); G47.33 Obstructive sleep apnea (adult) (pediatric); Z79.01 Long term (current) use of anticoagulants; Z79.899 Other long term (current) drug therapy
CPT/HCPCS: 92960; 93005; 93010; J2704